=== PATIENT | female | born 1980 | race Caucasian/White ===

== ENCOUNTER → 2017-09-15 08:50 | Outpatient (CLI) | payer OTHER, SELFPAY ==
[2017-09-23 16:44] LABS: HPV HC, High Risk Negative (Negative); HPV Reflexed? YES, CHARGE PATIENT
== END ==
PROVIDERS: Visit Provider Obstetrics & Gynecology
DX: R87.612 Low grade squamous intraepithelial lesion on cytologic smear of cervix (LGSIL) (principal)
CPT/HCPCS: 87624; 88175; G0145

== ENCOUNTER → 2017-11-15 14:45 | Outpatient (CLI) | payer OTHER, SELFPAY ==
--- NOTE | 2017-11-15 14:48 | CT_ITS ---
STUDY: CT ABDOMEN AND PELVIS WITH CONTRAST REASON FOR EXAM: Female, 37 years old. Left lower quadrant pain RADIATION DOSAGE (If Supplied By Facility): CTDIvol = ( 5.28 ) mGy, DLP = ( 353.33 ) mGycm TECHNIQUE: Transaxial images were obtained from the dome of the diaphragm to the symphysis pubis with oral contrast. 100mL ml of Isovue 300 contrast was administered. Sagittal and coronal images were reconstructed. Individualized dose optimization techniques were used for this CT. COMPARISON: Pelvic MRI dated 03/15/2017 FINDINGS: The visualized lung bases are clear. The visualized portions of the heart and pericardium are within normal limits. There are no calcified gallstones present. The liver is within normal limits. There are no suspicious hepatic lesions. The spleen is normal in size. The pancreas is within normal limits. The adrenal glands are within normal limits. There are no obstructing renal stones. There is no hydronephrosis. There are no focal renal lesions. Normal visualized stomach. There is no bowel obstruction or inflammation. There is a large amount of stool in the colon, consistent with constipation. The appendix is visualized and appears normal. The aorta is normal in caliber. There is no abdominal or pelvic free air, free fluid, fluid collection or lymphadenopathy. There are no destructive osseous lesions. CT/Abdomen/Pelvis WITH Contrast IMPRESSION: No acute abdominal or pelvic pathology. Constipation. Electronically Signed: Sami Lawrence, at 16:00 EDT Tel , Service support ,
== END ==
PROVIDERS: Visit Provider Internal Medicine Gastroenterology
DX: K59.00 Constipation, unspecified (principal); R10.32 Left lower quadrant pain
CPT/HCPCS: 74177; Q9967

== ENCOUNTER → 2018-01-26 15:31 | Outpatient (CLI) | payer OTHER, SELFPAY ==
[2018-02-04 12:09] LABS: HPV Reflexed? NOT INDICATED
== END ==
PROVIDERS: Visit Provider Obstetrics & Gynecology
DX: Z12.4 Encounter for screening for malignant neoplasm of cervix (principal)
CPT/HCPCS: 88175; G0145

== ENCOUNTER → 2019-03-01 14:33 | Outpatient (CLI) | payer OTHER, SELFPAY ==
[2019-03-06 08:15] LABS: HPV Reflexed? NOT INDICATED
== END ==
PROVIDERS: Visit Provider Obstetrics & Gynecology
DX: Z12.4 Encounter for screening for malignant neoplasm of cervix (principal)
CPT/HCPCS: 88175; G0145

== ENCOUNTER → 2019-06-27 16:43 | Outpatient (CLI) | payer OTHER, SELFPAY ==
--- NOTE | 2019-06-27 16:47 | BI_ITS ---
MAMMOGRAPHY - BILATERAL SCREENING 3-D TOMOSYNTHESIS REASON FOR EXAM: Female, 39 years old. PERTINENT HISTORY: No significant family history. TECHNIQUE: 2-D mammograms and 3-D Tomosynthesis of the breast (s) were performed. CAD was performed. COMPARISON: None. FINDINGS: The breast composition is heterogeneous fibroglandular tissue demonstrated bilaterally symmetrical in appearance that may obscure small lesions. Otherwise no evidence of stellate lesion, microcalcifications, skin thickening or nipple retraction. BI/SCREEN MAMM (CAD) W/MORGAN BILAT IMPRESSION: Negative digital mammography No mammographic signs of malignancy. Routine yearly mammograms recommended. ASSESSMENT CATEGORY: BIRADS Category 1: Negative. A letter regarding these results will be sent to the patient by the facility within 30 days. FOLLOW UP RECOMMENDATION: Yearly follow up mammogram recommended. (A) Approximately 10% of breast cancers are not detected by mammography. A normal mammogram should not delay biopsy of a clinically suspicious abnormality. Electronically Signed: Rodrigo Mcbride, at 13:07 EST Tel , Service support ,
== END ==
PROVIDERS: Referring Provider Obstetrics & Gynecology; Visit Provider Obstetrics & Gynecology
DX: Z12.31 Encounter for screening mammogram for malignant neoplasm of breast (principal)
CPT/HCPCS: 77063; 77067

== ENCOUNTER → 2019-11-20 08:21 | Outpatient (CLI) | payer OTHER, SELFPAY ==
--- NOTE | 2019-11-20 08:27 | US_ITS ---
STUDY: ABDOMINAL ULTRASOUND REASON FOR EXAM: Female, 39 years old. BLOATING -- CONSTIPATION -- BILAT ABD PAIN TECHNIQUE: Transabdominal ultrasound was performed with real-time and static torrez scale imaging. TECHNICAL QUALITY: Adequate. COMPARISON: None. FINDINGS: Liver: The liver is slightly enlarged and measures 19.1 cm. There is normal echogenicity of the liver. The bile ducts are within normal limits. There is hepatic color flow. The direction of portal flow is hepatopetal. There is no demonstrated mass lesion. Portal vein measurement: Gallbladder: Normal distended gallbladder. The gallbladder wall measures 2.2 mm. There is a negative sonographic Freire''s sign. There is no pericholecystic fluid. There are no gallstones. Common Bile Duct (C.B.D.): The common bile duct measures 3.9 mm. Pancreas: Normal size of the head, body and tail of the pancreas. There is normal echogenicity of the pancreas. There is no demonstrated pancreatic mass or cyst. Spleen: Normal size of the spleen. The spleen measures 10.6 cm x 4.3 cm x 4.1 cm. Right Kidney: Normal size of the right kidney. The right kidney measures 11.2 cm x 5 cm x 3.8 cm. Normal renal cortex. The right cortex measures 1.3 cm. There is no demonstrated renal mass or cyst. There is no right hydronephrosis. Left Kidney: Normal size of the left kidney. The left kidney measures 11.9 cm x 5.2 cm x 4.8 cm. Normal renal cortex. The left cortex measures 2.0 cm. There is no demonstrated renal mass or cyst. There is no left hydronephrosis. Aorta: Focal calcific plaques. I.V.C.: The IVC is patent. There is no ascites. US/Abdomen Complete IMPRESSION: Mild hepatomegaly. Electronically Signed: Aron Sarabia, at 13:46 EDT , Service support ,
[2019-11-20 10:36] LABS: Absolute Lymphocyte Count 2.29 X10^3/uL (0.83-4.51); Absolute Neutrophil Count 3.5 X10^3/uL (2.0-7.7); Basophil# 0.04 X10^3/uL; Basophil% 0.6 % (0-1); Eosinophil# 0.07 X10^3/uL; Eosinophils% 1.1 % (0-5); Hematocrit 39.4 % (37-47); Hemoglobin 13.4 g/dL (12.0-15.0); Lymphocyte # 2.29 X10^3/ul (4.0); Lymphocyte % 35.6 % (19-41); Mean Corpuscular Hgb 29.1 pg (27.0-32.0); Mean Corpuscular Volume 85.5 fL (81-99); Monocyte# 0.51 X10^3/uL; Monocyte% 7.9 % (0-10); NRBC Flagged by Analyzer 0 % (0-5); Neutrophil # 3.51 X10^3/uL (2.7-7.7); Neutrophil % 54.6 % (47-70); Platelet Count 252 K/mm3 (150-450); RBC Distribution Width CV 12.4 % (11.6-14.6); RBC Distribution Width SD 38.8 fl (35.1-43.9); Red Blood Count 4.61 M/mm3 (4.2-5.4); White Blood Count 6.4 K/mm3 (4.4-11.0)
[2019-11-20 11:11] LABS: ALB/GLOB Ratio 1.1 RATIO (0.9-2.4); AST(SGOT) 21 U/L (15-37); Alanine Aminotransfer ALT/SGPT 29 U/L (13-56); Albumin, Serum 4.2 g/dL (3.2-5.0); Alkaline Phosphatase 31 U/L (45-117); Anion Gap 5 (5-15); BUN 16 mg/dL (7-18); BUN/Creat Ratio 18.7 RATIO (10-20); Calcium,Total 8.7 mg/dL (8.5-10.1); Chloride 104 mmol/L (98-107); Creatinine, Serum 0.85 mg/dL (0.55-1.02); EST Glomerular Filtration Rate 79 mL/min (>60); Est Glom Filt Rate - Afr Amer 95 mL/min (>60); Globulin 3.9 g/dL (2.2-4.2); Glucose 128 mg/dL (74-106); Potassium 4.2 mmol/L (3.5-5.1); Protein, Total 8.1 g/dL (6.4-8.2); Sodium Level 136 mmol/L (136-145); Thyroid Stim Hormone (TSH) 0.85 uIU/mL (0.358-3.74)
== END ==
PROVIDERS: Referring Provider Internal Medicine Gastroenterology; Visit Provider Internal Medicine Gastroenterology
DX: K59.00 Constipation, unspecified (principal); R14.0 Abdominal distension (gaseous); R10.30 Lower abdominal pain, unspecified; I95.1 Orthostatic hypotension; Z86.010 Personal history of colon polyps
CPT/HCPCS: 36415; 76700; 80053; 84443; 85025

== ENCOUNTER → 2020-03-04 10:11 | Outpatient (CLI) | payer OTHER, SELFPAY ==
[2020-03-04 11:21] LABS: Estradiol 103.2 pg/mL
[2020-03-04 11:22] LABS: Progesterone Level 0.23 ng/mL (See Comment)
[2020-03-08 04:07] LABS: Age Gdln ACOG Testing 30-65 (.)
[2020-03-08 04:26] LABS: HPV APTIMA, High Risk Negative (Negative)
[2020-03-08 04:27] LABS: HPV Reflexed? NOT INDICATED
== END ==
PROVIDERS: Visit Provider Obstetrics & Gynecology
DX: Z12.4 Encounter for screening for malignant neoplasm of cervix (principal); N92.6 Irregular menstruation, unspecified; G44.89 Other headache syndrome; R63.5 Abnormal weight gain
CPT/HCPCS: 36415; 82627; 82670; 84144; 84403; 88175; 82626; G0145

== ENCOUNTER → 2020-06-28 09:35 | Outpatient (CLI) | payer OTHER, SELFPAY ==
--- NOTE | 2020-06-28 10:00 | BI_ITS ---
MAMMOGRAPHY - BILATERAL SCREENING REASON FOR EXAM: Female, 40 years old. Routine annual screening examination. PERTINENT HISTORY: Screening TECHNIQUE: Digital bilateral breast morgan (3D mammographic acquisition) in the CC and MLO projections. 2-D mediolateral oblique (MLO) and craniocaudad (CC) views of both breasts were obtained. CAD: Full Field Digital Mammography with Computer Added Detection was performed. COMPARISON: Previous mammogram obtained on 06/27/2019 FINDINGS: Breast Composition: Heterogeneous There are no dominant masses or suspicious calcifications. No other significant abnormalities are identified. BI/SCREEN MAMM (CAD) W/MORGAN BILAT IMPRESSION: Stable bilateral screening mammogram. Yearly follow-up mammogram recommended. (A) ASSESSMENT CATEGORY: BIRADS Category 1: Negative. A letter regarding these results will be sent to the patient by the facility within 30 days. Approximately 10% of breast cancers are not detected by mammography. A normal mammogram should not delay biopsy of a clinically suspicious abnormality. [id number] Electronically Signed: Sadi Love, at 16:48 EST Tel , Service support ,
== END ==
PROVIDERS: Referring Provider Obstetrics & Gynecology; Visit Provider Obstetrics & Gynecology
DX: Z12.31 Encounter for screening mammogram for malignant neoplasm of breast (principal)
CPT/HCPCS: 77063; 77067

== ENCOUNTER → 2021-01-27 16:32 | Outpatient (CLI) | payer OTHER, SELFPAY ==
[2021-01-27 18:48] LABS: Estradiol 190.4 pg/mL; Follicle Stimulating Hormone 6.3 mIU/mL; Luteinizing Hormone 3.8 mIU/mL; Prolactin 7.9 ng/mL; T4 Free Direct 0.96 ng/dL (0.76-1.46); Thyroid Stim Hormone (TSH) 0.93 uIU/mL (0.358-3.74)
[2021-01-31 07:57] LABS: HPV APTIMA, High Risk Negative (Negative)
[2021-02-02 07:49] LABS: Testosterone Free 0.5 pg/mL (0.0-4.2)
== END ==
PROVIDERS: Visit Provider Student in an Organized Health Care Education/Training Program
DX: Z12.4 Encounter for screening for malignant neoplasm of cervix (principal); N92.6 Irregular menstruation, unspecified
CPT/HCPCS: 36415; 82627; 82670; 83001; 83002; 84146; 84402; 84439; 84443; 87624; 88175; 82626; G0145

== ENCOUNTER → 2021-05-27 17:41 | Outpatient (CLI) | payer OTHER, SELFPAY ==
--- NOTE | 2021-05-27 17:54 | CT_ITS ---
STUDY: CT ABDOMEN AND PELVIS WITH CONTRAST REASON FOR EXAM: Female, 40 years old. WEIGHT LOSS AND LOW AB PAIN RADIATION DOSAGE (If Supplied By Facility): CTDIvol = ( 12.98 ) mGy, DLP = ( 479.29 ) mGycm TECHNIQUE: Transaxial images were obtained from the dome of the diaphragm to the symphysis pubis with oral contrast. Oral and amp; IV Readi-CAT and amp; 100mL Isovue-370 was administered. Sagittal and coronal images were reconstructed. Individualized dose optimization techniques were used for this CT. COMPARISON: Comparison is made with prior study dated 11/15/2017. FINDINGS: Stable minimal linear scarring in the anterior medial aspect of the right middle lobe. The visualized portions of the heart are within normal limits. Normal liver. Normal gallbladder and extrahepatic biliary system. Normal spleen. Normal pancreas. Normal bilateral adrenal glands. Normal right kidney. Normal left kidney. Normal visualized stomach. Normal small intestine. There is suggestion of a circumferential wall thickening of the rectosigmoid colon. Localized colitis should be ruled out. The appendix is visualized and appears normal. Normal abdominal aorta. Normal inferior vena cava. Normal retroperitoneum. Normal urinary bladder. There is a 1.5 cm follicle in the left ovary. I suspect a 2 cm uterine fibroid. Normal abdominal wall. Normal osseous structures. CT/Abdomen/Pelvis WITH Contrast IMPRESSION: Questionable colitis involving the rectosigmoid colon. Dominant follicle in the left ovary. Electronically Signed: Aron Sarabia MD at 9:51 EDT , Service support ,
== END ==
PROVIDERS: PCP Family Medicine; Referring Provider Internal Medicine Gastroenterology; Visit Provider Internal Medicine Gastroenterology
DX: R63.4 Abnormal weight loss (principal); R10.30 Lower abdominal pain, unspecified; K59.00 Constipation, unspecified; I95.1 Orthostatic hypotension; Z86.010 Personal history of colon polyps
CPT/HCPCS: 74177; Q9967

== ENCOUNTER → 2021-06-30 09:53 | Outpatient (CLI) | payer OTHER, SELFPAY ==
--- NOTE | 2021-06-30 09:57 | BI_ITS ---
MAMMOGRAPHY - BILATERAL SCREENING REASON FOR EXAM: Female, 41 years old. Routine annual screening examination. PERTINENT HISTORY: Non-contributory. TECHNIQUE: Digital bilateral breast morgan (3D mammographic acquisition) in the CC and MLO projections. 2-D mediolateral oblique (MLO) and craniocaudad (CC) views of both breasts were obtained. CAD: Full Field Digital Mammography with Computer Added Detection was performed. COMPARISON: Comparison is made with prior study dated 06/28/2020 and 06/27/2019. FINDINGS: Breast Composition: The breasts are heterogeneously dense, which may obscure small masses. There are no dominant masses or suspicious calcifications. No other significant abnormalities are identified. There has been no significant change since the prior study. BI/SCRN MAMM (CAD)W/MORGAN BILAT IMPRESSION: Stable bilateral screening mammogram. Yearly follow-up mammogram recommended. (A) ASSESSMENT CATEGORY: BIRADS Category 1: Negative. A letter regarding these results will be sent to the patient by the facility within 30 days. Approximately 10% of breast cancers are not detected by mammography. A normal mammogram should not delay biopsy of a clinically suspicious abnormality. [id number] Electronically Signed: Aron Sarabia MD at 10:57 EST , Service support ,
== END ==
PROVIDERS: PCP Family Medicine; Visit Provider Student in an Organized Health Care Education/Training Program
DX: Z12.31 Encounter for screening mammogram for malignant neoplasm of breast (principal)
CPT/HCPCS: 77063; 77067

== ENCOUNTER 2021-08-05 17:05 | Outpatient (CLI) | payer OTHER, SELFPAY | END 2021-08-05 23:59 | disposition short-term general hospital (02) | LOC: LABSPEC 17:07 | PROVIDERS: PCP Family Medicine; Visit Provider Student in an Organized Health Care Education/Training Program | DX: Z20.822 Contact with and (suspected) exposure to COVID-19 (principal) | CPT/HCPCS: 87635; U0003; U0005 ==

== ENCOUNTER 2021-08-07 07:10 | Day surgery (SDC) | payer OTHER, SELFPAY ==
[2021-08-05 17:51] LABS: Hematocrit 37.7 % (37-47); Mean Corp Hgb Conc 34.5 g/dL (32-36); Mean Corpuscular Hgb 29.7 pg (27.0-32.0); Mean Corpuscular Volume 86.1 fL (81-99); Mean Platelet Vol. 10.3 fl (6.2-12.0); Platelet Count 348 K/mm3 (150-450); RBC Distribution Width CV 12.4 % (11.6-14.6); RBC Distribution Width SD 39.3 fl (35.1-43.9); Red Blood Count 4.38 M/mm3 (4.2-5.4); White Blood Count 7.8 K/mm3 (4.4-11.0)
[2021-08-05 18:35] LABS: Anion Gap 6 (5-15); BUN 15 mg/dL (7-18); BUN/Creat Ratio 16.9 RATIO (10-20); Calcium,Total 9.4 mg/dL (8.5-10.1); Chloride 100 mmol/L (98-107); Creatinine, Serum 0.88 mg/dL (0.55-1.02); EST Glomerular Filtration Rate 75 mL/min (>60); Est Glom Filt Rate - Afr Amer 90 mL/min (>60); Glucose 93 mg/dL (74-106); Potassium 3.6 mmol/L (3.5-5.1); Sodium Level 136 mmol/L (136-145)
[2021-08-07] VITALS (11 sets, daily range): BP systolic 86–119; BP diastolic 50–83; PULSE 44–58; RESP 12–18; TEMP 36.2–36.9; O2SAT 92–100; BMI 23.1
--- NOTE | 2021-08-07 07:18 | PCM.HP.BLA ---
History and Physical Date of Admission: 08/07/21 HISTORY OF PRESENT ILLNESS: On 08/05/2021, Jess Shepherd, a 41 year old female 3 0 1 0 3, presented for: dilation and curettage, polypectomy with symphion, skyler ablation. Diagnostic laparoscopy, possible right ovarian cystectomy/drainage, possible myomectomy. Cystoscopy for abdominal pain and abnormal uterine bleeding. Patient has history of abdominal pain for which she has had a CT abdomen/pelvis and colonoscopy this summer/fall. All studies negative at this time. Therefore decision for diagnostic laparoscopy made. Simple ovarian cyst noted on pelvic ultrasound. Patient also experiencing abnormal uterine bleeding, polyps noted in pelvic US. MEDICAL HISTORY: 1. WILEY 2. HSV 3. Irritable bowel syndrome ALLERGIES: PCN, Rash/hives, Penicillins and Rash MEDICATIONS HISTORY: Current medications prescribed by our practice are: 1. Valtrex 500 mg tablet, As Directed 1 tab po BID x 7 days Patient is also takin. Multi For Her 18 mg iron-600 mcg-80 mcg tablet, daily 2. magnesium 200 mg tablet 3. Probiotic 15 billion cell capsule 4. Aleve 220 mg capsule, 2 tid 5. Linzess 72 mcg capsule, BID 6. Vitamin D3 125 mcg (5,000 unit) tablet, One pill by mouth once a day SURGICAL HISTORY: 1. Knee Surgery 1996 2. Umbilical Hernia Repair, 10/12 3. 02/18/2010 Shelley Nuñez M.D. 4. colonoscopy 2019 5. 06/23/2021 colonoscopy 6. 07/05/2015 vein surgery 7. 09/21/2015 vein surgery 8. Colonoscopy 2020 MENSTRUAL HISTORY: LMP Known?- Definite Amount/Duration - Varies, Regularity - Irregular, Frequency - variable days, LMP - 07/22/21, Age Onset Menarche - 15 PAST PREGNANCIES: Total Pregnancies - 4; Full Term Pregnancies - 3; Premature - 0; Abortions, Induced - 0; Abortions, Spontaneous - 1; Ectopics - 0; Multiple Births - 0; Living Children - 3 FAMILY HISTORY: Heart disease SOCIAL HISTORY: Alcohol Use - denies drinking Smoking - denies smoking Drug Use - denies REVIEW OF SYSTEMS: GENERAL - Denies headache SKIN - Denies skin changes EYES - Denies visual changes EARS - Denies difficulty hearing NOSE - Denies nasal congestion or bleeding MOUTH - Denies sore throat or difficulty swallowing NECK - Denies pain or swelling RESPIRATORY - Denies shortness of breath or wheezing CARDIOVASCULAR - Denies palpitations or chest pain GASTROINTESTINAL - Pain/discomfort in stomach / colonoscopy last wednesday06/23/2021 GENITOURINARY - Denies dysuria, frequency of urination, incontinence of urine MUSCULOSKELETAL - Denies joint or muscle pain NEUROLOGICAL - Denies localized numbness or weakness PSYCHIATRIC - Denies depression or anxiety ENDOCRINE - Denies heat or cold intolerance, weight loss or gain HEMATO-IMMUNOLOGIC - Denies excessive bleeding with cuts PAST HISTORY: PHYSICAL EXAMINATION BP- 124/88 Sitting, Right arm, regular cuff Weight- 139.97890977523517 lbs Height- 64.0 inch BMI:23.99 CONSTITUTIONAL - NAD, well nourished, and well developed SKIN - No rash, lesions, or ulcers HEENT - Normocephalic, PERRLA, EOMI LUNGS - CTA x2 without wheezes, crackles or rales CARDIAC - Regular rate and rhythm without rubs, murmurs, or gallops ABDOMEN - Without hepatosplenomegaly, distention, masses, rebound, or guarding; normal bowel sounds; no hernias EXTREMITIES - No edema or calf tenderness NEUROLOGICAL - Cranial nerves II-XII grossly intact PSYCHIATRIC - A and O to time, place, person, mood and affect ASSESSMENT/PLAN: Pt with persistent irregular and prolonged menses. She additionally has pelvic and abdominal pain that has been present for an extended period of time. Recently severe LLQ pain. She has had CT of abdomen/pelvis, colonoscopy (wnl). TVUS completed showing simple right ovarian cysts, endometrial polyps. 2 subserosal fibroids. Nonperistalsing bowel in LLQ Based on US results and persistent abdominal pain with normal colonoscopy, planned for surgical exploration. will plan for: Dilation and curettage, polypectomy with symphion, skyler ablation. Diagnostic laparoscopy, possible right ovarian cystectomy/drainage, possible myomectomy. Cystoscopy R/B/A discussed. Risks include, but are not limited to. Risk of bleeding to the point of transfusion, infection, injury to surrounding tissue (bowel/bladder/major vessels), VTE, ICU admission. POTS history requiring hyocyamine preop. Has had asystole with IV insert in past. Had normal workup cardiac juarez in 2015. Had normal EKG last week. Sees Dr. William in [facility].
--- NOTE | 2021-08-07 07:25 | OP.PCM_ITS ---
Report of Operation Date of Procedure: 08/07/21 Pre-Operative Diagnosis: Abdominal pain, Abnormal Uterine Bleeding, Endometrial Polyps, Right Ovarian Cyst Post-Operative Diagnosis: Abdominal pain, Abnormal Uterine Bleeding, Endometrial Polyps, Cervical Polyp, Right Ovarian Cyst, Omental Adhesions Surgery/Procedure Performed:: Hysteroscopy, cervical dilation, endometrial polypectomy with Symphion, cervical polypectomy, Monalisa ablation. Cystoscopy. Laparoscopic right ovarian cyst drainage, Lysis of Adhesions. Description of Surgical Findings:: Normal-appearing external genitalia. Moderate uterine descensus. Normal-appearing bladder, bilateral ureteral orifices noted. Endometrial cavity with 2 endometrial polyps, small cervical polyp. Endometrial cavity measured 8 cm, cervical length 4 cm. 2 small right simple ovarian cysts measuring approximately 2 and 3 cm. Clear fluid upon drainage. Normal-appearing left ovary. Normal-appearing uterus and fallopian tubes. No fibroids noted on examination of uterus. Omental adhesion to area of umbilical hernia repair. Diverticular disease of colon, normal-appearing appendix. Normal-appearing gallbladder and liver. No adhesions in the area of the liver. General inflammation of abdomen and pelvis with increased vascularity noted. Type of Anesthesia: General Specimen's removed: Endometrial curettings, Cervical polyp Estimated Blood Loss (mL): 20cc Fluids Replaced: 1200cc Description of Procedure: Indications/risks/benefits: 41-year-old female with abnormal uterine bleeding and endometrial polyps on ultrasound. Patient also has generalized abdominal pain for a prolonged period of time with negative work-up. Additionally right ovarian cyst on ultrasound. Decision for hysteroscopy, dilation curettage, polypectomy with Symphion, Monalisa ablation, cystoscopy, diagnostic laparoscopy with possible myomectomy and possible ovarian cystectomy for ovarian cyst drainage. All risk, benefits, alternatives were discussed with the patient. Risks include but are not limited to: Risk of bleeding to the point of transfusi on, infection, injury to surrounding tissue including bowel/bladder/uterine perforation/injury to major abdominal vessels, VTE, ICU admission. Patient aware and consented. Procedure: Patient taken to the operating room and placed under general anesthesia. Place patient prepped and draped in the usual sterile fashion. Cystoscopy completed first. Cystoscope placed through urethra and visualization of the bladder cavity was completed with finding as above. Bladder drained. Cystoscope removed. Weighted speculum placed in the posterior vagina and Brown retractor used to visualize the cervix. Cervix grasped with Allis clamp. Cervix sequentially dilated. Hysteroscope placed through cervical canal with visualization of endometrial cavity and findings as above of endometrial polyps. Symphion device utilized to remove endometrial polyps. Uterine and cervical lengths measured. Small cervical polyp noted and removed with polyp forceps. Hysteroscope removed and Monalisa device placed into the endometrial cavity. Monalisa passed safety checks and was deployed. Dorado catheter placed. Gloves were changed and attention turned to the anterior abdominal cavity. 5 mm incision made at Toledo's point. Optiview entry was attempted. Insufflation was completed and the subcutaneous tissue became insuffplated. Unable to successfully enter abdominal cavity with this method. Veress needle was then attempted for insufflation, however this was not successful. At that time decision for open entry was made. Skin incision was extended. Fascia was tagged with suture on both sides of incision. S retractors visualized to visualize the peritoneum which was grasped with 2 hemostats and incised medially. Peritoneal entry comleted. Trocar was placed. Abdomen insufflated. Inspection of abdominal cavity was completed with findings above. Due to findings of persistent ovarian cyst, Sargis manipulator was placed in the endometrial cavity to help with manipulation. Gloves changed again. Right lower quadrant incision made and trocar placed under direct visualization. Left lower quadrant trocar placed under direct visualization in similar manner. Right ovary grasped and LigaSure was used to incise both ovarian cysts. Adhesions were lysed near the umbilicus using LigaSure device as well. Hemostatic. Insufflation was stopped, trochars removed. Right and left lower quadrant incisions closed with subcutaneous stitch. Left upper quadrant incision at Toledo's point: Fascia closed with a running stitch and skin closed with subcuticular stitch. Skin glue used. Sargis manipulator removed, hemostatic cervix. Dorado catheter removed. At the end of procedure all needle, lap, sponge counts were correct. 550cc deficit symphion UOP: 50cc Complications None
--- NOTE | 2021-08-07 07:25 | PCM.DC ---
Discharge Instructions Diet Discharge Diet: No restrictions Activity Discharge Activity: Return to Normal Activity and May Shower May resume sexual activity in: 1-2 weeks Weight Bearing Status: Weight bearing as tolerated Lifting Restrictions: No greater than 25 pounds Dressing / Incision Call your doctor if your incision/area has: Continuous Slow Oozing, Increased Pain/ Swelling and Increased Redness Call your doctor if you observe: Fever of 101 or Higher, Change in Color, Inability to urinate, Using more than 1 pad per hour, Shortness of breath, Dizziness, Swelling in the ankles, Chest pain and Calf discomfort Cleanse incision/area with: Soap & Water Follow Up Care Please Follow Up With: Tierra Pineda DO When: 2-week postoperative visit Test Results: Test results from this visit will be discussed in further detail at your follow-up appointment, if applicable. Discharge Plan Admission Attending Provider: Tierra Pineda Primary Care Provider: Pricila Gonzalez Consulting Providers: Luis Antonio Emmanuel Discharge Orders/Prescriptions Prescriptions: New oxycodone 5 mg tablet 5 mg PO Q6H PRN (Reason: pain (scale score 7-10)) 3 Days Qty: 10 RF: 0 Continued hyoscyamine sulfate 0.125 mg Tablet 0.125 mg PO DAILY PRN (Reason: PROCEDURE) RF: 0 Linzess 145 mcg Capsule 145 mcg PO DAILY RF: 0 Referrals / Follow Up: Pricila Gonzalez MD [Primary Care Provider] - Disposition Disposition (needs filled in before D/C Order can be placed): Home, Self Care
[2021-08-07 07:56] LABS: Internal QC Validated? YES +Cl - CLEAR BKGD
[2021-08-07 07:57] LABS: Pregnancy, Urine Negative Negative
[2021-08-07] MEDS: Lactated Ringers 1,000 ML 15 ML IV ×2 (08:10→15:22)
--- NOTE | 2021-08-07 08:40 | CER_PTH ---
PATIENT: ADRIA BARKLEY [place] [facility] [id number] AGE/SX: 41/F ROOM: RE08/07/[address]: Dr. Tierra Pineda DO : 1980 BED: DIS: 08/07/2021 SPEC #: [id number] RECD: 08/07/21 11:53 STATUS: ANDRES REMare #: [id number] BRENT: 08/07/21 08:[address]: Tierra Pineda DEPT: SURGICAL PATHOLOGY RECD BY: Desiree Ruiz ENTERED: 08/07/21 13:35 SP TYPE: CERV OTHR DR: MD Dr. Pricila Denise MD Tissues: A - Uterine cervix, NOS B - Endometrium, NOS Procedures: Surgery Specimen Level IV HEADER OPERATION: Hysteroscopy, D & C Symphion and Monalisa, right ovarian cystectomy PRE-OP DIAGNOSIS: Persistent irregular and prolonged menses, right ovarian cysts TISSUE SUBMITTED: A ? Cervical polyp, B ? Endometrial curettings MICROSCOPIC DIAGNOSIS A. Cervical polyp, polypectomy: Benign endocervical polyp, inflamed. B. Endometrium, curettings: Disordered proliferative endometrium. Recent mucosal hemorrhage. AM:varinder 08/08/2021 MICROSCOPIC DESCRIPTION Slides are reviewed. GROSS DESCRIPTION A - Received in fixative is one container labeled with the patient's name and designated cervical polyp. The specimen consists of an irregular fragment of henry tissue measuring 0.8 x 0.7 x 0.2 cm. The specimen is totally submitted in one cassette. B - Received in fixative is one container labeled with the patient's name and designated endometrial curettings. The specimen consists of multiple irregular fragments of pink-henry soft tissue that in aggregate measure 2.5 x 2 x 0.2 cm. The specimen is totally submitted in one cassette. / AM:varinder 08/07/21 TC:5 CPT: 71946 x2
[2021-08-07] MEDS: HYDROcodone Bitartrate/Apap 5/325 Tablet PO (13:37)
--- NOTE | 2021-08-07 15:23 | SUR.PHASEII ---
1420 PT ATTEMPTED TO STAND UP. PT REPORTED FEELING DIZZY. LAID BACK DOWN. DIZZINESS RESOLVED.
== END 2021-08-07 23:59 | disposition home or self-care (01) ==
LOC: SDC 07:10 → AC 07:10
PROVIDERS: Anesthesiology; PCP Family Medicine; Referring Provider Student in an Organized Health Care Education/Training Program; Visit Provider Student in an Organized Health Care Education/Training Program
PROC: 0U5B8ZZ Destruction of Endometrium, Via Natural or Artificial Opening Endoscopic (ICD-10-PCS; CPT 58558; principal; 2021-08-07 08:25)
DX: N93.9 Abnormal uterine and vaginal bleeding, unspecified (principal); N84.0 Polyp of corpus uteri; I49.8 Other specified cardiac arrhythmias; N92.1 Excessive and frequent menstruation with irregular cycle; N83.291 Other ovarian cyst, right side; K66.0 Peritoneal adhesions (postprocedural) (postinfection); K57.30 Diverticulosis of large intestine without perforation or abscess without bleeding; R10.84 Generalized abdominal pain; R10.2 Pelvic and perineal pain
CPT/HCPCS: 58563; 49322; 00952; 36415; 80048; 81025; 85027; 86850; 86900; 86901; 88305; J7120; J2405

== ENCOUNTER → 2021-10-09 07:10 | Outpatient (CLI) | payer OTHER, SELFPAY ==
--- NOTE | 2021-10-09 07:12 | US_ITS ---
STUDY: ABDOMINAL ULTRASOUND REASON FOR EXAM: Female, 41 years old. NAUSEA / LOSS OF APPETITE / RUQ ABD TENDERNESS TECHNIQUE: Transabdominal ultrasound was performed with real-time and static torrez scale imaging. TECHNICAL QUALITY: Adequate. COMPARISON: Comparison is made with prior study dated 11/20/2019. FINDINGS: Liver: The liver measures 13.2 cm. There is normal echogenicity of the liver. The bile ducts are within normal limits. There is hepatic color flow. The direction of portal flow is hepatopetal. There is no demonstrated mass lesion. Gallbladder: Normal distended gallbladder. The gallbladder wall measures 2 mm. There is a negative sonographic Freire''s sign. There is no pericholecystic fluid. There are no gallstones. Common Bile Duct (C.B.D.): The common bile duct measures 2 mm. Pancreas: Normal size of the head, body and tail of the pancreas. There is normal echogenicity of the pancreas. There is no demonstrated pancreatic mass or cyst. Spleen: Normal size of the spleen. The spleen measures 9.6 cm x 5.1 cm x 4.5 cm. Right Kidney: Normal size of the right kidney. The right kidney measures 11.6 cm x 5.3 cm x 5.2 cm. Normal renal cortex. The right cortex measures 1.7 cm. There is a nonobstructive 4 mm intrarenal calculus. There is no right hydronephrosis. Left Kidney: Normal size of the left kidney. The left kidney measures 11.6 cm x 4.7 cm x 6.3 cm. Normal renal cortex. The left cortex measures 2.1 cm. There is no demonstrated renal mass or cyst. There is no left hydronephrosis. Aorta: Unremarkable I.V.C.: The IVC is patent. There is no ascites. US/Abdomen Complete IMPRESSION: Normal abdominal ultrasound examination. 4 mm nonobstructive right intrarenal calculus. Electronically Signed: Aron Sarabia MD at 9:15 EST ,
== END ==
PROVIDERS: PCP Family Medicine
DX: N20.0 Calculus of kidney (principal); R11.0 Nausea; R63.0 Anorexia; R68.81 Early satiety; R10.811 Right upper quadrant abdominal tenderness
CPT/HCPCS: 76700

== ENCOUNTER → 2021-12-24 | Outpatient (CLI) | payer OTHER, SELFPAY ==
--- NOTE | 2021-12-24 11:07 | ECHOD_ITS ---
Reason For Study: Syncope Procedure This was a 2D Doppler, Color Flow transthoracic echocardiogram. Bubble study performed. Exam performed in department. Left Ventricle Normal LV size. Left ventricular systolic function is normal. The estimated ejection fraction is 55 %. Normal diastology for age. No regional wall motion abnormalities noted. Right Ventricle Normal RV size. Normal systolic function. Atria Normal left atrium. Normal right atrium. Bubble contrast study negative for right to left interatrial shunt. Mitral Valve Normal mitral valve. Tricuspid Valve Normal tricuspid valve. Trivial tricuspid valve insufficiency. Aortic Valve Normal aortic valve. Pulmonic Valve Normal pulmonic valve. Great Vessels Normal aortic root. Pericardium/Pleural No pericardial effusion. Medication 22 gauge I.V. with prn adaptor inserted into right arm. Performed a rapid injection of agitated mix of 9 cc saline and 1cc air to assess for atrial septal defect. MMode/2D Measurements & Calculations LVIDd: 5.2 cm IVSd: 0.98 cm LA dimension: 2.8 cm LVIDs: 3.8 cm LVPWd: 0.78 cm FS: 26.6 % LAV(MOD-sp4): 21.1 ml LA A4 area: 10.8 cm2 RA A4 area: 11.7 cm2 Time Measurements MV dec time: 0.32 sec Doppler Measurements & Calculations MV E max fabian: 100.8 cm/sec Lat Peak E' Fabian: 13.9 cm/sec Med Peak E' Fabian: 12.5 cm/sec MV A max fabian: 68.5 cm/sec E/E' lat: 7.2 E/E' med: 8.1 MV E/A: 1.5 MV V2 max: 131.9 cm/sec MV P1/2t max fabian: 131.9 cm/sec Ao V2 max: 84.1 cm/sec MV max P.0 mmHg MV P1/2t: 76.8 msec Ao max P.8 mmHg MV V2 mean: 56.0 cm/sec MV dec slope: 502.9 cm/sec2 MV mean P.6 mmHg MV V2 VTI: 41.4 cm MVA(P1/2t): 2.9 cm2 LV V1 max: 75.1 cm/sec PA V2 max: 84.7 cm/sec TR max fabian: 177.0 cm/sec LV V1 max P.3 mmHg TR max P.5 mmHg ECHO/Echo Complete Interpretation Summary Normal LV size. Left ventricular systolic function is normal. The estimated ejection fraction is 55 %. Normal diastology for age. Structurally normal valves. Ordering Physician: Reji Dunaway Referring Physician: Pricila Gonzalez Performed By: Jonah Hilario RCS
== END | disposition home or self-care (01) ==
LOC: CVS 11:06
PROVIDERS: PCP Family Medicine; Referring Provider Internal Medicine Cardiovascular Disease; Visit Provider Internal Medicine Cardiovascular Disease
DX: R55 Syncope and collapse (principal)
CPT/HCPCS: 93306; A4216

== ENCOUNTER → 2022-03-24 | Outpatient (CLI) | payer OTHER, SELFPAY ==
[2022-04-01 13:50] LABS: HPV APTIMA, High Risk Negative (Negative)
== END | disposition home or self-care (01) ==
LOC: LABSPEC 15:22
PROVIDERS: PCP Family Medicine; Visit Provider Student in an Organized Health Care Education/Training Program
DX: Z01.419 Encounter for gynecological examination (general) (routine) without abnormal findings (principal)
CPT/HCPCS: 87624; 88175; G0145

== ENCOUNTER → 2022-07-01 | Outpatient (CLI) | payer OTHER, SELFPAY ==
--- NOTE | 2022-07-01 08:37 | BI_ITS ---
MAMMOGRAPHY - BILATERAL SCREENING REASON FOR EXAM: Female, 42 years old. Routine annual screening examination. PERTINENT HISTORY: Non-contributory. TECHNIQUE: Digital bilateral breast morgan (3D mammographic acquisition) in the CC and MLO projections. 2-D mediolateral oblique (MLO) and craniocaudad (CC) views of both breasts were obtained. CAD: Full Field Digital Mammography with Computer Added Detection was performed. COMPARISON: Comparison is made with prior study dated 06/30/2021 and 06/28/2020. FINDINGS: Breast Composition: The breasts are heterogeneously dense, which may obscure small masses. There are no dominant masses or suspicious calcifications. No other significant abnormalities are identified. There has been no significant change since the prior study. BI/SCRN MAMM (CAD)W/MORGAN BILAT IMPRESSION: Stable bilateral screening mammogram. Yearly follow-up mammogram recommended. (A) ASSESSMENT CATEGORY: BIRADS Category 1: Negative. A letter regarding these results will be sent to the patient by the facility within 30 days. Approximately 10% of breast cancers are not detected by mammography. A normal mammogram should not delay biopsy of a clinically suspicious abnormality. [id number] Electronically Signed: Aron Sarabia MD at 9:37 EST ,
== END | disposition home or self-care (01) ==
PROVIDERS: PCP Family Medicine; Visit Provider Student in an Organized Health Care Education/Training Program
DX: Z12.31 Encounter for screening mammogram for malignant neoplasm of breast (principal)
CPT/HCPCS: 77063; 77067

== ENCOUNTER → 2022-09-15 | Outpatient (CLI) | payer OTHER, SELFPAY ==
[2022-09-15 15:41] LABS: Absolute Lymphocyte Count 2.44 X10^3/uL (0.83-4.51); Absolute Neutrophil Count 3.2 X10^3/uL (2.0-7.7); Basophil# 0.03 X10^3/uL; Basophil% 0.5 % (0-1); Eosinophil# 0.05 X10^3/uL; Eosinophils% 0.8 % (0-5); Hematocrit 36.5 % (37-47); Hemoglobin 12.3 g/dL (12.0-15.0); Lymphocyte # 2.44 X10^3/ul (0.83-4.51); Lymphocyte % 38.8 % (19-41); Mean Corp Hgb Conc 33.7 g/dL (32-36); Mean Corpuscular Hgb 29.4 pg (27.0-32.0); Mean Corpuscular Volume 87.1 fL (81-99); Mean Platelet Vol. 10.8 fl (6.2-12.0); Monocyte# 0.53 X10^3/uL; Monocyte% 8.4 % (0-10); NRBC Flagged by Analyzer 0 % (0-5); Neutrophil # 3.23 X10^3/uL (2.7-7.7); Neutrophil % 51.3 % (47-70); Platelet Count 322 K/mm3 (150-450); RBC Distribution Width CV 12.5 % (11.6-14.6); RBC Distribution Width SD 39.8 fl (35.1-43.9); Red Blood Count 4.19 M/mm3 (4.2-5.4); White Blood Count 6.3 K/mm3 (4.4-11.0)
[2022-09-15 16:32] LABS: CRP < 2.90 mg/L (0.0-3.0); Rheumatoid Factor < 10.0 IU/mL (<15)
[2022-09-15 19:33] LABS: Erythrocyte Sedimentation Rate 2 mm/hr (0-30)
[2022-09-17 14:09] LABS: Cytoplasmic Ab (C-ANCA) <1:20 titer (Neg:<1:20)
[2022-09-18 18:50] LABS: CCP IgG Antibodies 3 units (0-19); Perinuclear Ab (P-ANCA) <1:20 titer (Neg:<1:20)
[2022-09-18 18:51] LABS: ANTINUCLEAR ANTIBODIES DIRECT Negative (Negative)
== END | disposition home or self-care (01) ==
PROVIDERS: PCP Family Medicine; Visit Provider Family Medicine
DX: R21 Rash and other nonspecific skin eruption (principal)
CPT/HCPCS: 36415; 85025; 85652; 86038; 86140; 86200; 86225; 86235; 86256; 86431

== ENCOUNTER → 2024-07-20 | Outpatient (CLI) | payer OTHER, SELFPAY ==
--- NOTE | 2024-07-20 10:57 | BI_ITS ---
MAMMOGRAPHY - BILATERAL SCREENING REASON FOR EXAM: Female, 44 years old. Routine annual screening examination. PERTINENT HISTORY: Non-contributory. TECHNIQUE: Digital bilateral breast morgan (3D mammographic acquisition) in the CC and MLO projections. 2-D mediolateral oblique (MLO) and craniocaudad (CC) views of both breasts were obtained. CAD: Full Field Digital Mammography with Computer Added Detection was performed. COMPARISON: Comparison is made with prior study dated July 01, 2022 and June 30, 2021. FINDINGS: Breast Composition: The breasts are heterogeneously dense, which may obscure small masses. There are no dominant masses or suspicious calcifications. No other significant abnormalities are identified. There has been no significant change since the prior study. BI/SCRN MAMM (CAD)W/MORGAN BILAT IMPRESSION: Stable bilateral screening mammogram. Yearly follow-up mammogram recommended. (A) ASSESSMENT CATEGORY: BIRADS Category 1: Negative. A letter regarding these results will be sent to the patient by the facility within 30 days. Approximately 10% of breast cancers are not detected by mammography. A normal mammogram should not delay biopsy of a clinically suspicious abnormality. [id number] Electronically Signed: Aron Sarabia MD at 12:44 EST ,
== END | disposition home or self-care (01) ==
PROVIDERS: PCP Family Medicine; Referring Provider Family Medicine; Visit Provider Family Medicine
DX: Z12.31 Encounter for screening mammogram for malignant neoplasm of breast (principal)
CPT/HCPCS: 77063; 77067

== ENCOUNTER → 2024-10-27 | Outpatient (CLI) | payer OTHER, SELFPAY ==
[2024-10-27 17:17] LABS: Erythrocyte Sedimentation Rate 8 mm/hr (0-30)
[2024-10-27 17:20] LABS: Absolute Lymphocyte Count 1.96 X10^3/uL (0.83-4.51); Absolute Neutrophil Count 3.2 X10^3/uL (2.0-7.7); Basophil# 0.04 X10^3/uL; Basophil% 0.7 % (0-1); Eosinophil# 0.21 X10^3/uL; Eosinophils% 3.5 % (0-5); Hematocrit 37.6 % (37-47); Hemoglobin 12.8 g/dL (12.0-15.0); Lymphocyte # 1.96 X10^3/ul (0.83-4.51); Lymphocyte % 33.1 % (19-41); Mean Corpuscular Hgb 29.1 pg (27.0-32.0); Mean Corpuscular Volume 85.5 fL (81-99); Mean Platelet Vol. 10.3 fl (6.2-12.0); Monocyte# 0.52 X10^3/uL; Monocyte% 8.8 % (0-10); NRBC Flagged by Analyzer 0 % (0-5); Neutrophil # 3.16 X10^3/uL (2.7-7.7); Neutrophil % 53.4 % (47-70); Platelet Count 399 K/mm3 (150-450); RBC Distribution Width CV 12.6 % (11.6-14.6); RBC Distribution Width SD 39.5 fl (35.1-43.9); White Blood Count 5.9 K/mm3 (4.4-11.0)
[2024-10-27 19:59] LABS: ALB/GLOB Ratio 1.2 RATIO (0.9-2.4); AST(SGOT) 19 U/L (<=31); Alanine Aminotransfer ALT/SGPT 16 U/L (<=34); Albumin, Serum 4.3 g/dL (3.5-5.0); Alkaline Phosphatase 46 U/L (35-104); Anion Gap 16 (5-15); BUN 14 mg/dL (4-19); BUN/Creat Ratio 16.7 RATIO (10-20); Calcium,Total 9.5 mg/dL (7.6-11.0); Chloride 102 mmol/L (98-108); Creatinine, Serum 0.82 mg/dL (0.70-1.20); EST Glomerular Filtration Rate 91 (>60); Globulin 3.7 g/dL (2.2-4.2); Glucose 100 mg/dL (70-99); Sodium Level 142 mmol/L (133-145); Total Bilirubin 0.18 mg/dL (0.00-1.30)
[2024-10-27 20:02] LABS: Rheumatoid Factor < 10.0 IU/mL (<15)
[2024-10-30 12:08] LABS: CCP IgG Antibodies 6 units (0-19)
[2024-10-30 13:07] LABS: ANTINUCLEAR ANTIBODIES DIRECT Negative (Negative)
[2024-10-31 09:09] LABS: Thyroid Stim Hormone (TSH) 0.698 uIU/mL (0.300-4.200)
== END | disposition home or self-care (01) ==
LOC: BFHLAB 14:30
PROVIDERS: PCP Family Medicine; Visit Provider Family Medicine
DX: Z78.0 Asymptomatic menopausal state (principal); M25.50 Pain in unspecified joint; R53.83 Other fatigue
CPT/HCPCS: 36415; 80053; 83001; 84443; 85025; 85652; 86038; 86140; 86200; 86431

== ENCOUNTER → 2025-02-06 | Outpatient (CLI) | payer OTHER, SELFPAY ==
[2025-02-06 13:23] LABS: Follicle Stimulating Hormone 106.0 mIU/mL
[2025-02-12 16:09] LABS: HPV APTIMA, High Risk Negative (Negative)
== END | disposition home or self-care (01) ==
PROVIDERS: PCP Family Medicine; Referring Provider Nurse Practitioner Family; Visit Provider Nurse Practitioner Family
DX: Z12.4 Encounter for screening for malignant neoplasm of cervix (principal); R53.83 Other fatigue
CPT/HCPCS: 36415; 82670; 83001; 84403; 87624; 88175; G0145